=== PATIENT | male | born 1955 | race Caucasian/White ===

== ENCOUNTER 2016-12-18 08:19 | Observation (INO) | payer OTHER ==
[~2016-12-18] VITALS: Ht 157.5 cm; Wt 96.5 kg
[~2016-12-18 08:19] MED LIST: ALEVE220 M2 PO; ALEVE220 MG PO; CIPRO500 MG PO; DILAUDID2 MG PO; GLUCOPHAGE850 MG PO; LISINOPRIL5 MG PO; LO-DOSE ASPIRIN81 M1 PO; MEN'S 50+ DAIL1 EACH PO; MEN'S MULTI-VI1 EACH PO; METFORMIN HCL500 MG PO; MOBIC7.5 MG PO; PRINIVIL10 MG PO; ZESTRIL10 MG PO; ZOCOR20 MG PO
[2016-12-18 09:44] LABS: EOSINOPHIL (%) 3.4 % (0-5); EOSINOPHIL COUNT 0.3 K/uL (0-0.3); HEMATOCRIT 46.9 % (38.0-50.0); IMMATURE GRANULOCYTE (%) 0.4 % (0.0-0.7); LYMPHOCYTE COUNT 2.1 K/uL (1.0-2.8); MCH 29.5 PG (29.0-34.0); MCHC 33.7 G/DL (30.0-36.0); MCV 87.7 FL (86-99); MEAN PLAT.VOLUME 9.7 uM^3 (9.0-12.4); MONOCYTE (%) 8.7 % (3-12); MONOCYTE COUNT 0.7 K/uL (0-0.8); NEUTROPHIL (%) 61.7 % (45-76); PLATELET COUNT 212 K/uL (156-360); RBC DIS.WIDTH-CV 12.7 % (11.8-14.6); RBC DIS.WIDTH-SD 40.7 % (39-53); RED BLOOD COUNT 5.35 M/uL (4.00-5.50); WHITE BLOOD COUNT 8.2 K/uL (4.1-10.2)
[2016-12-18 09:54] LABS: CHLORIDE 107 mEq/L (99-109); POTASSIUM 4.6 mEq/L (3.7-5.4); SODIUM 139 mEq/L (136-147)
[2016-12-18 09:56] LABS: GLUCOSE 155 mg/dL (70-99)
[2016-12-18 09:58] LABS: ANION GAP 9 MEQ/L (2-14)
[2016-12-18 10:00] LABS: GFR ESTIMATE (CALCULATED) > 59 mL/min/
[2016-12-18 10:01] LABS: UREA NITROGEN (BUN) 21 mg/dL (9-23)
[2016-12-18 10:04] LABS: TROP-I INTERPRETATION NEGATIVE; TROPONIN-I < 0.01 ng/mL (0.0-0.30)
[2016-12-18] MEDS ORDERED: PRINIVIL20 MG PO (12:16)
[2016-12-18] MEDS ORDERED: GLUCOPHAGE1000 MG PO (12:18)
[2016-12-18] MEDS ORDERED: VENTOLIN HFA18 GM IH (12:19)
[2016-12-18 16:03] LABS: TROP-I INTERPRETATION NEGATIVE; TROPONIN-I 0.04 ng/mL (0.0-0.30)
[2016-12-18 17:38] LABS: POINT-OF-CARE METER ID UU13113702
[2016-12-18 19:22] LABS: POINT-OF-CARE METER ID UU13113702
[2016-12-18 21:52] VITALS: BP 170/65
[2016-12-18 22:44] VITALS: BP 180/100
[2016-12-18 22:54] LABS: TROP-I INTERPRETATION NEGATIVE; TROPONIN-I 0.02 ng/mL (0.0-0.30)
[2016-12-19 00:31] VITALS: BP 176/84
[2016-12-19 03:18] VITALS: BP 141/72
[2016-12-19 06:54] LABS: Estimated Average Glucose 151 mg/dL (70-123); HEMOGLOBIN A1c (GLYCOHEMOGLOB) 6.9 % HGB (Below 5.7)
[2016-12-19 07:05] LABS: HDL CHOLESTEROL 23 MG/DL (Desirable>=40); LDL CHOLESTEROL 60 mg/dL (Desirable<100); NON-HDL CHOLESTEROL 98 mg/dL (Desirable<160); TOTAL CHOLESTEROL 121 mg/dL (Desirable<200); TRIGLYCERIDES 190 MG/DL (Normal: <150)
[2016-12-19 08:17] VITALS: BP 185/92
[2016-12-19 10:12] LABS: LYME DISEASE SEROLOGY SCREEN NEGATIVE (NEGATIVE)
[2016-12-19 11:00] VITALS: BP 178/87
== END 2016-12-19 13:30 | disposition home or self-care (01) ==
LOC: EME 08:19 → 5SOUTH 10:53 → EDOF 10:53 → 5SOUTH 21:50
PROVIDERS: Emergency Medicine; Internal Medicine
DX: G51.0 Bell's palsy (principal); I16.0 Hypertensive urgency; I10 Essential (primary) hypertension; E11.9 Type 2 diabetes mellitus without complications; J45.909 Unspecified asthma, uncomplicated; B19.20 Unspecified viral hepatitis C without hepatic coma
CPT/HCPCS: 70140; 70450; 70496; 70498; 70551; 80048; 80061; 82948; 83036; 84443; 84484; 85025; 86618; 92610 GN; 93005; 93306; 93880; 99202; 99281; 99285; G0378; J1650; J1815; J2270; J3010; J7030; J7512; S0028